=== PATIENT | female | born 1950 | race Caucasian/White ===

== ENCOUNTER → 2020-06-29 | Outpatient (CLI) | payer OTHER | LOC: SJCVCIMAG 07:22 | PROVIDERS: ATTEND Internal Medicine | DX: I08.8 Other rheumatic multiple valve diseases (principal); I65.22 Occlusion and stenosis of left carotid artery; E78.5 Hyperlipidemia, unspecified; Z87.891 Personal history of nicotine dependence ==

== ENCOUNTER → 2020-06-30 | Outpatient (CLI) | payer OTHER | LOC: SJCVCIMAG | PROVIDERS: ATTEND Internal Medicine | DX: I25.10 Atherosclerotic heart disease of native coronary artery without angina pectoris (principal); R00.0 Tachycardia, unspecified; I49.3 Ventricular premature depolarization; E78.5 Hyperlipidemia, unspecified; I65.23 Occlusion and stenosis of bilateral carotid arteries; Z79.899 Other long term (current) drug therapy; Z87.891 Personal history of nicotine dependence ==

== ENCOUNTER → 2021-07-03 | Outpatient (CLI) | payer OTHER | LOC: SJCVC 09:28 | PROVIDERS: ATTEND Internal Medicine | DX: R94.31 Abnormal electrocardiogram [ECG] [EKG] (principal); R06.00 Dyspnea, unspecified; R93.1 Abnormal findings on diagnostic imaging of heart and coronary circulation; E78.5 Hyperlipidemia, unspecified; I65.23 Occlusion and stenosis of bilateral carotid arteries; M51.36 Other intervertebral disc degeneration, lumbar region; Z79.82 Long term (current) use of aspirin; Z79.899 Other long term (current) drug therapy; Z87.891 Personal history of nicotine dependence; Z72.89 Other problems related to lifestyle; Z82.49 Family history of ischemic heart disease and other diseases of the circulatory system ==